=== PATIENT | male | born 1965 | race Caucasian/White ===

== ENCOUNTER 2022-03-20 13:25 | Emergency (ER) | payer MEDICARE, MEDICAID ==
[~2022-03-20] VITALS: Ht 180.3 cm; Wt 94.1 kg
[2022-03-20 13:26] VITALS: BP 170/89
[2022-03-20] MEDS ORDERED: LEVO88TA3 (13:40)
[2022-03-20] MEDS ORDERED: LISI20TA33 (13:40)
[2022-03-20] MEDS ORDERED: AZITHROMYCIN 250MG TABLET PO ONE (16:25)
[2022-03-20] MEDS ORDERED: AZIT-12 PO (16:31)
[2022-03-21] MEDS ORDERED: AZIT-12 PO (12:42)
== END 2022-03-20 16:38 | disposition home or self-care (01) ==
LOC: M ED 13:25
DX: J18.9 Pneumonia, unspecified organism (principal); K21.9 Gastro-esophageal reflux disease without esophagitis; I10 Essential (primary) hypertension; E03.9 Hypothyroidism, unspecified; E78.5 Hyperlipidemia, unspecified; Z79.811 Long term (current) use of aromatase inhibitors; Z79.899 Other long term (current) drug therapy

== ENCOUNTER 2023-08-26 14:01 | Emergency (ER) | payer MEDICARE, MEDICAID ==
[~2023-08-26] VITALS: Ht 180.3 cm; Wt 98.8 kg
[~2023-08-26 14:01] MED LIST: AZIT-12 PO; LEVO88TA3; LISI20TA33
[2023-08-26] MEDS ORDERED: AMOX875T (14:11)
[2023-08-26] MEDS ORDERED: ATOR1TAB21 (14:11)
[2023-08-26] MEDS ORDERED: LISI40TA4 (14:11)
[2023-08-26] MEDS ORDERED: ISOVUE-370 76% 100ML VIAL As Ordered ONE (14:58)
[2023-08-26 15:02] LABS: BASO % 0.2 % (0.0-1.0); EOS # 0.2 10^3/uL (0.0-0.5); EOS % 1.3 % (0.0-3.0); HEMATOCRIT 43.6 % (42.0-52.0); HEMOGLOBIN 15.1 g/dl (13.5-17.5); LYMPH # 1.6 10^3/uL (1.5-5.0); MEAN CORPUSCULAR HEMOGLOBIN 30.9 pg (27.0-33.0); MEAN CORPUSCULAR HGB CONC 34.6 g/dl (32.0-36.5); MEAN CORPUSCULAR VOLUME 89.2 fl (80.0-96.0); MONO # 1.1 10^3/uL (0.0-0.8); MONO % 8.8 % (2.0-8.0); NEUTROPHILS # 9.4 10^3/uL (1.5-8.5); NEUTROPHILS % 76.4 % (36.0-66.0); PLATELET COUNT, AUTOMATED 230 10^3/uL (150-450); RED BLOOD COUNT 4.89 10^6/uL (4.30-6.10); WHITE BLOOD COUNT 12.2 10^3/uL (4.0-10.0)
[2023-08-26 15:17] LABS: ERYTHROCYTE SEDIMENTATION RATE 39 mm/hr (0-20)
[2023-08-26] MEDS: NS 1,000 ML IV ONE (16:01)
[2023-08-26] MEDS: DOXYCYCLINE HYCLATE 100MG TABLET PO ONE (16:03)
[2023-08-26] MEDS: NORCO, ANEXSIA 5/325MG TABLET (HYDROcodone/ACETAMINOPHEN) PO ONE (16:03)
[2023-08-26] MEDS: LIDOCAINE W/EPINEPHRINE 1% 20ML VIAL SC ONE (17:05)
[2023-08-26] MEDS: ONDANSETRON 4MG 2ML VIAL IV ONE (17:26)
[2023-08-26] MEDS ORDERED: DOXY-323 PO (17:45)
[2023-08-26 18:11] VITALS: BP 130/80; TEMP 99.6; O2SAT 97
[2023-08-28] MEDS ORDERED: CEPH500C PO (08:17)
== END 2023-08-26 18:23 | disposition home or self-care (01) ==
LOC: M ED 14:01
DX: K76.89 Other specified diseases of liver (principal); K61.1 Rectal abscess; I10 Essential (primary) hypertension; E78.5 Hyperlipidemia, unspecified; N18.2 Chronic kidney disease, stage 2 (mild); Z79.2 Long term (current) use of antibiotics; Z79.02 Long term (current) use of antithrombotics/antiplatelets; Z79.811 Long term (current) use of aromatase inhibitors; Z79.899 Other long term (current) drug therapy
CPT/HCPCS: 74177; 80047; 81001; 85025; 85652; 86140; 87070; 87077; 87186; 87205; 96361; 96374; 99283; J2405; Q9967

== ENCOUNTER 2024-08-09 12:03 | Emergency (ER) | payer MEDICARE, MEDICAID ==
[~2024-08-09] VITALS: Ht 180.3 cm; Wt 90.5 kg
[~2024-08-09 12:03] MED LIST changes: +AMOX875T; +ATOR1TAB21; +CEPH500C PO; +DOXY-441 PO; +LISI40TA4
[2024-08-09] MEDS: NS (Normal Saline) 0.9% 1,000 ML IV ONE ×3 (13:26→17:10)
[2024-08-09 13:36] LABS: ALBUMIN 3.7 G/DL (3.2-5.2); BILIRUBIN,DIRECT 0.2 MG/DL (<0.4); BILIRUBIN,TOTAL 0.7 MG/DL (0.3-1.2); CALCIUM LEVEL 9.5 MG/DL (8.3-10.6); CREATININE FOR GFR 2.15 MG/DL (0.70-1.30); GLOMERULAR FILTRATION RATE 34.4 (>49); POTASSIUM SERUM 4.5 MMOL/L (3.5-5.1); TOTAL PROTEIN 6.9 G/DL (5.7-8.2)
[2024-08-09 13:40] LABS: BASO % 0.3 % (0.0-1.0); EOS # 2.1 10^3/uL (0.0-0.5); EOS % 17.5 % (0.0-3.0); HEMATOCRIT 49.3 % (42.0-52.0); HEMOGLOBIN 16.8 g/dl (13.5-17.5); LYMPH # 1.7 10^3/uL (1.5-5.0); LYMPH % 14.3 % (24.0-44.0); MEAN CORPUSCULAR HEMOGLOBIN 30.2 pg (27.0-33.0); MEAN CORPUSCULAR HGB CONC 34.1 g/dl (32.0-36.5); MEAN CORPUSCULAR VOLUME 88.7 fl (80.0-96.0); MONO # 0.6 10^3/uL (0.0-0.8); MONO % 5.1 % (2.0-8.0); NEUTROPHILS # 7.5 10^3/uL (1.5-8.5); NEUTROPHILS % 62.4 % (36.0-66.0); PLATELET COUNT, AUTOMATED 285 10^3/uL (150-450); RED BLOOD COUNT 5.56 10^6/uL (4.30-6.10); WHITE BLOOD COUNT 12.1 10^3/uL (4.0-10.0)
[2024-08-09] MEDS ORDERED: LISI40TA4 PO (14:04)
[2024-08-09] MEDS ORDERED: LEVO88TA3 PO (14:04)
[2024-08-09] MEDS ORDERED: ATOR1TAB21 PO (14:04)
[2024-08-09] MEDS: LOPERAMIDE 2 MG CAPLET PO ONE (17:11)
[2024-08-09] MEDS ORDERED: LOPE-39 PO (17:35)
[2024-08-09 18:00] VITALS: BP 137/70; TEMP 98.1; O2SAT 96
== END 2024-08-09 18:27 | disposition home or self-care (01) ==
LOC: M ED 12:03 → MERGE 12:03 → EDBD 12:03 → M ED 18:27
DX: R19.7 Diarrhea, unspecified (principal); E86.0 Dehydration; N18.30 Chronic kidney disease, stage 3 unspecified; K21.9 Gastro-esophageal reflux disease without esophagitis; E78.5 Hyperlipidemia, unspecified; G25.81 Restless legs syndrome; F10.10 Alcohol abuse, uncomplicated; Z79.2 Long term (current) use of antibiotics; Z79.02 Long term (current) use of antithrombotics/antiplatelets; Z79.899 Other long term (current) drug therapy

== ENCOUNTER → 2024-11-05 | Outpatient (REF) | payer MEDICARE, MEDICAID ==
[~2024-11-05] MED LIST changes: +ATOR1TAB21 PO; +LEVO88TA3 PO; +LISI40TA10; +LISI40TA10 PO; -LISI40TA4; +LOPE-39 PO
== END ==
LOC: M LAB REF 17:10
PROVIDERS: ATTEND Physician Assistant
DX: B34.9 Viral infection, unspecified (principal)